=== PATIENT | male | born 1980 | race Caucasian/White ===

== ENCOUNTER → 2018-05-07 | Outpatient (CLI) | payer OTHER ==
[~2018-05-07] MED LIST: ALBU8HFA2 INH; AMOCLA875 PO; AMOX500 PO; CYCL10 PO; Cleocin HCl300 MG PO; DOXY100 PO; FAMO20 PO; HYDACE5 PO; HYDPAM25; IBUP800 PO; Mobic15 MG PO; NAPR375 PO; Norco 10-325 T1 EACH PO; Norco 5-325 Ta1 EACH PO; PROC5 PO; PROCODE120 PO; Zofran4 MG PO
== END | disposition home or self-care (01) ==
LOC: LAB SHORT 13:44 → LAB EV 13:44
DX: J02.9 Acute pharyngitis, unspecified (principal)
CPT/HCPCS: 87070